=== PATIENT | male | born 1955 | race Caucasian/White ===

== ENCOUNTER 2020-08-31 06:06 | Inpatient (IN) ==
[2020-08-31] MEDS ORDERED: CeFAZolin Syr 2,000MG/20 ML 2,000 MG/20 ML SYRINGE IVPB ONE (06:19)
[2020-08-31] MEDS ORDERED: Ringers Solution, Lactated 1,000 ML IVC SCH ×2 (06:30→06:45)
[2020-08-31] MEDS ORDERED: *HR* FentaNYL (PF) 100 MCG/2 ML VIAL IVP PRN (06:32)
[2020-08-31] MEDS ORDERED: *HR* Labetalol 20 MG/4 ML SYRINGE IVP PRN ×2 (06:32→12:05)
[2020-08-31] MEDS ORDERED: *HR* OxyCODONE Immed Rel 5 MG TABLET PO PRN ×2 (06:32→12:05)
[2020-08-31] MEDS ORDERED: Ondansetron 4 MG/2 ML VIAL IVP PRN ×2 (06:32→12:05)
[2020-08-31] MEDS ORDERED: Nitroglycerin 0 MG/0 ML INFUS..BTL IVC ONE (06:54)
[2020-08-31] MEDS ORDERED: NiCARdipine 2.5 MG/10 ML Syringe IVPB ONE (06:55)
[2020-08-31] MEDS ORDERED: Acetaminophen IV 1,000 MG/100 ML BAG IVPB ONE (06:55)
[2020-08-31] MEDS ORDERED: Heparin 1,000 UNITS/500 mL 500 ML ONE ×2 (07:06→07:10)
[2020-08-31] MEDS ORDERED: Protamine Sulfate 50 MG/5 ML VIAL IVP ONE (07:08)
[2020-08-31] MEDS ORDERED: Lidocaine 1% 20 ML MDV ONE (07:09)
[2020-08-31] MEDS ORDERED: Lidocaine HCL 4 ML Topical Solution (Laryng-O-Jet Kit Sterile Pak) TP ONE (07:13)
[2020-08-31] MEDS ORDERED: *HR* Propofol 200 MG/20 ML VIAL IVP ONE (07:14)
[2020-08-31] MEDS ORDERED: *HR* Phenylephrine 10 MG/ML VIAL ONE (07:14)
[2020-08-31] MEDS ORDERED: *HR* FentaNYL (PF) 100 MCG/2 ML VIAL ONE ×2 (07:14→08:28)
[2020-08-31] MEDS ORDERED: Lidocaine -MPF 2% 2 ML VIAL ONE ×2 (07:15→07:23)
[2020-08-31] MEDS ORDERED: *HR* Rocuronium Bromide 50 MG/5 ML VIAL ONE ×2 (07:15→09:21)
[2020-08-31] MEDS ORDERED: *HR* Succinylcholine 200 MG/10 ML VIAL IVP ONE (07:15)
[2020-08-31] MEDS ORDERED: Ondansetron 4 MG/2 ML VIAL ONE (07:15)
[2020-08-31] MEDS ORDERED: *HR* Heparin 5,000 UNIT/ML VIAL ONE ×2 (07:16→10:06)
[2020-08-31] MEDS ORDERED: ceFAZolin 1,000 MG, Sodium Chloride IRRigation 1,000 ML IR ONE (07:45)
[2020-08-31] MEDS ORDERED: Naloxone 0.4 MG/ML INJ IVP PRN (12:05)
[2020-08-31] MEDS ORDERED: Acetaminophen 325 MG TABLET PO PRN (12:05)
[2020-08-31] MEDS ORDERED: Sildenafil Citrate 20 MG TABLET PO PRN (12:05)
[2020-08-31] MEDS: CeFAZolin 2 GM/120 ML BAG IVPB SCH ×2 (15:28→23:11)
[2020-08-31] MEDS: *HR* HYDROcodone/Acet 5/325 mg TABLET PO PRN (16:55)
[2020-08-31] MEDS: carvediloL 6.25 MG TABLET PO SCH (16:55)
[2020-08-31] MEDS ORDERED: traZODone 50 MG TABLET PO SCH (21:00)
[2020-09-01] MEDS: *HR* HYDROcodone/Acet 5/325 mg TABLET PO PRN (02:20)
[2020-09-01 04:51] LABS: Basophils % 0.1 %; Eosinophils % 0.2 %; Hematocrit 37.9 % (37.5-50.1); Hemoglobin 12.9 g/dL (12.9-16.9); Immature Granulocytes % 0.3 % (0-4); Lymphocytes # 1.5 K/mcL (0.6-4.6); Lymphocytes % 12.3 %; Mean Corpuscular Hemoglobin 31.9 pg (28.0-33.3); Mean Corpuscular Volume 93.8 fL (83.0-100.0); Mean Platelet Volume 10.7 fL (9.4-12.4); Monocytes % 8.1 %; Neutrophils # 9.3 K/mcL (1.6-8.9); Platelet Count 177 K/mcL (140-400); Red Blood Count 4.04 M/mcL (4.19-5.50); Red Cell Distribution Width 11.8 % (11.5-14.5); White Blood Count 11.8 K/mcL (4.3-11.1)
[2020-09-01 05:07] LABS: BUN/Creatinine Ratio 17 (6-26); Blood Urea Nitrogen 13 mg/dL (8-23); Calcium 8.7 mg/dL (8.6-10.3); Carbon Dioxide 23 mEq/L (23-29); Chloride 108 mEq/L (98-107); Glucose 110 mg/dL (70-105); Osmolality,Calculated 287 (280-300); Potassium 4.1 mEq/L (3.5-5.1); Sodium 138 mEq/L (136-145); eGFR For African Americans > 60 (> 60); eGFR For Non-African Americans > 60 (> 60)
[2020-09-01 07:43] VITALS: BP 119/81
[2020-09-01] MEDS: CeFAZolin 2 GM/120 ML BAG IVPB SCH (07:46)
[2020-09-01] MEDS: carvediloL 6.25 MG TABLET PO SCH (07:46)
== END 2020-09-01 11:44 | disposition home or self-care (01) | DRG 39 ==
LOC: SAMDAY 06:06 → 2NNU 12:04
PROVIDERS: ADMIT Surgery Vascular Surgery; ATTEND Surgery Vascular Surgery